=== PATIENT | male | born 1990 | race Hispanic/Latino ===

== ENCOUNTER 2017-03-19 18:13 | Emergency (ER) | payer OTHER ==
[2017-03-19 18:26] VITALS: RESP 22; O2SAT 98
[2017-03-19] MEDS ORDERED: Albuterol-Ipratrop 3 mg / 0.5 (3 ml) UD ONE ×2 (18:33→19:04)
[2017-03-19] MEDS ORDERED: Albuterol-Ipratrop 3 mg / 0.5 (3 ml) UD INH STA (18:36)
[2017-03-19] MEDS ORDERED: Sodium Chloride 0.9% 1,000 ML IV STA (18:37)
--- NOTE | 2017-03-19 18:49 | ED PDOC ---
HPI: General Adult Time Seen by Provider: 03/19/17 18:25 Chief Complaint (Nursing): Fever Chief Complaint (Provider): Shortness of breath/Cough History Per: Patient History/Exam Limitations: no limitations Onset/Duration Of Symptoms: Days (2 ays ago) Current Symptoms Are (Timing): Still Present Additional Complaint(s): 26 y/o male with a history of asthma and anxiety, presents to the ED with shortness of breath and cough with associated chest tightness, onset of 2 days ago. Patient reports that his difficulty breathing got worse this morning, prompting his ED visit and also notes of using an albuterol pump without relief. He also reports of fever, chills, rhinorrhea, malaise, fatigue, and body aches. Of note, he's been taking Dayquil, Nyquil, and Advil at home. Past Medical History Reviewed: Historical Data, Nursing Documentation, Vital Signs Vital Signs: Last Vital Signs Temp 100.3 F H 03/19/17 21:12 Pulse 92 H 03/19/17 20:46 Resp 22 03/19/17 18:22 BP 106/51 L 03/19/17 20:46 Pulse Ox 98 03/19/17 20:46 - Medical History PMH: Anxiety, Asthma - Surgical History Other surgeries: testicular torsion repair - Family History Other Family History: asthma - Social History Current smoker - smoking cessation education provided: Yes Ex-Smoker (has not smoked in the last 12 months): No - Home Medications Home Medications: Ambulatory Orders Medication Instructions Recorded Albuterol HFA [Ventolin HFA 90 2 puff IH Q4H PRN #1 inh 03/19/17 mcg/actuation (8 g)] Oseltamivir [Tamiflu] 75 mg PO BID #10 cap 03/19/17 Promethazine HCl/Codeine 10 ml PO Q6 PRN #120 ml 03/19/17 [Prometh-Codein 6.25-10 mg/5 ml] - Allergies Allergies/Adverse Reactions: Allergies Allergy/AdvReac Type Severity Reaction Status Date / Time peanut Allergy RASH Verified 03/19/17 18:22 Review of Systems ROS Statement: Except As Marked, All Systems Reviewed And Found Negative Constitutional: Positive for: Fever, Chills, Malaise, Other (body aches) ENT: Positive for: Nose Discharge Cardiovascular: Positive for: Other (chest tightness) Respiratory: Positive for: Cough, Shortness of Breath - Laboratory Results Result Diagrams: 03/19/17 18:56 03/19/17 19:27 - ECG O2 Sat by Pulse Oximetry: 98 (RA) Pulse Ox Interpretation: Normal Medical Decision Making Medical Decision Making: Ti:me: --18:34 Impression: --Cough and Influenza like illness Differential: --Asthma Exacerbation Plan: --EKG --Labs --Chest X-ray --albutrol 9ml INH --methylprednisolone 125mg IVP --Tamiflu Cap 75mg PO --Blood Culture --IV Insertion --Peak flow pre/post tx --Influenza A B Reassess -- Scribe Attestation: Documented by Brad Sandoval acting as a scribe for Sharlene Gomez MD. Provider Attestation: All medical record entries made by the Scribe were at my direction and personally dictated by me. I have reviewed the chart and agree that the record accurately reflects my personal performance of the history, physical exam, medical decision making, and the department course for this patient. I have also personally directed, reviewed, and agree with the discharge instructions and disposition. Disposition - Clinical Impression Clinical Impression: Influenza - Disposition Referrals: Clive Archibald MD [Family Provider] - (FOLLOW UP WITH DR ARCHIBALD NEXT WEEK TO SEE HOW YOU ARE DOING) Condition: STABLE Prescriptions: Albuterol HFA [Ventolin HFA 90 mcg/actuation (8 g)] 2 puff IH Q4H PRN #1 inh PRN Reason: ASTHMA Oseltamivir [Tamiflu] 75 mg PO BID #10 cap Promethazine HCl/Codeine [Prometh-Codein 6.25-10 mg/5 ml] 10 ml PO Q6 PRN #120 ml PRN Reason: SEVERE COUGH ONLY Instructions: Influenza (ED) Forms: [employer] (Armenian)
[2017-03-19 19:08] LABS: VENOUS BLOOD GAS BASE EXCESS 1.8 mmol/L (0.0-2.0); VENOUS BLOOD GAS PCO2 32 mmHg (40-60); VENOUS BLOOD GAS PO2 27 mm/Hg (30-55); VENOUS BLOOD PH 7.49 (7.32-7.43)
[2017-03-19 19:31] LABS: BASO # 0.1 K/uL (0.0-0.2); BASO % 0.8 % (0.0-2.0); EOS # 0.1 K/uL (0.0-0.7); EOS % 0.6 % (0.0-4.0); HEMOGLOBIN 14.6 g/dL (12.0-18.0); LYMPH # 0.9 K/uL (1.0-4.3); LYMPH % 10.6 % (20.0-40.0); MEAN CELL VOLUME 89.9 fl (80.0-94.0); MEAN CORPUSCULAR HEMOGLOBIN 29.9 pg (27.0-31.0); MEAN CORPUSCULAR HGB CONC 33.3 g/dL (33.0-37.0); MEAN PLATELET VOLUME 9.1 fl (7.2-11.7); MONO # 0.7 K/uL (0.0-0.8); NEUT # 6.8 K/uL (1.8-7.0); RBC 4.87 Mil/uL (4.40-5.90); RED CELL DISTRIBUTION WIDTH 12.6 % (11.5-14.5); WHITE BLOOD COUNT 8.5 K/uL (4.8-10.8)
[2017-03-19 19:50] LABS: ALB/GLOB RATIO 1.5 (1.0-2.1); ALBUMIN 3.8 g/dL (3.5-5.0); ALT/SGPT 36 U/L (21-72); AST/SGOT 21 U/L (17-59); BLOOD UREA NITROGEN 8 mg/dl (9-20); CALCIUM 8.4 mg/dL (8.4-10.2); GFR AFRICAN-AMERICAN > 60; GFR NON-AFRICAN AMERICAN > 60
[2017-03-19] MEDS ORDERED: Promethazine/Cod 6.25mg-10mg/5ml Syr UD ONE (20:01)
[2017-03-19] MEDS ORDERED: Promethazine/Cod 6.25mg-10mg/5ml Syr UD PO STA (20:10)
[2017-03-19 20:46] VITALS: BP 106/51; PULSE 92; TEMP 100.3
--- NOTE | 2017-03-20 09:18 | RAD ---
HISTORY: SOB COMPARISON: No prior. TECHNIQUE: Chest PA and lateral FINDINGS: LUNGS: No active pulmonary disease. PLEURA: No significant pleural effusion identified. No pneumothorax apparent. CARDIOVASCULAR: Normal. OSSEOUS STRUCTURES: No significant abnormalities. VISUALIZED UPPER ABDOMEN: Normal. OTHER FINDINGS: None. IMPRESSION: No active disease.
--- NOTE | 2017-03-21 12:59 | CARD ---
APPROVED REPORT EKG Measurement Heart [id number] <Conclusion> Normal sinus rhythm Normal ECG
== END 2017-03-19 20:58 | disposition home or self-care (01) ==
LOC: H.ER 18:13
DX: J09.X2 Influenza due to identified novel influenza A virus with other respiratory manifestations (principal); J45.909 Unspecified asthma, uncomplicated; F41.9 Anxiety disorder, unspecified
CPT/HCPCS: 71046; 80053; 82803; 85025; 87040; 87804; 93005; 94640; 96374; 99281; J2930; J7040